=== PATIENT | female | born 1975 | race Caucasian/White ===

== ENCOUNTER 2024-06-06 07:01 | Day surgery (SDC) | payer OTHER ==
[2024-06-06] MEDS: LACTATED RINGERS 1,000 ML IV ONE ×2 (07:13→09:10)
--- NOTE | 2024-06-06 08:09 | ANESTHESIA ---
Pre-Anesthesia VS, & Labs - Diagnosis screening - Procedure colonoscopy Vital Signs: Temp Pulse Resp BP Pulse Ox O2 Flow Rate 36.1 C L 68 12 133/71 H 98 06/06/24 07:17 06/06/24 07:17 06/06/24 07:17 06/06/24 07:17 06/06/24 07:17 Height: 24 in Weight (kg): 71.2 kg Body Mass Index: 191.6 BMI Classification: Morbidly Obese - NPO >8 hours - Is Patient ?: No - Lab Results Current Lab Results: Laboratory Tests 06/06/24 07:41: POC Whole Bld Glucose 132 H Home Medications and Allergies Home Medications: Ambulatory Orders metFORMIN [Glucophage] 500 mg ORAL DAILY 06/06/24 metFORMIN [Glucophage] 500 mg ORAL DAILY 06/06/24 Allergies/Adverse Reactions: Allergies Allergy/AdvReac Type Severity Reaction Status Date / Time No Known Drug Allergies Allergy Verified 06/06/24 07:48 Anes History & Medical History - Anesthetic History Anesthesia Complications: reports: No previous complications - Medical History Cardiovascular: reports: None Pulmonary: reports: None Gastrointestinal: reports: None Urinary: reports: None Musculoskeletal: reports: None Endocrine/Autoimmune: reports: None, Type 2 diabetes Skin: reports: None Smoking Status: Never smoker - Surgical History General: reports: Cholecystectomy Gynecologic: reports: section Exam General: Alert, Oriented x3 Dental: WNL Mouth Opening: Greater than 4 Fingerbreadths Neck Mobility: Normal Mallampati classification: II Thyromental Distance: greater than 6 cm Respiratory: Lungs clear Cardiovascular: Regular rate Plan Anesthesia Type: Total IV Consent for Procedure(s) Verified and Reviewed: Yes Code Status: Attempt Resuscitation ASA classification: 2-Mild systemic disease Is this case an emergency?: No
[2024-06-06] MEDS ORDERED: PROPOFOL 500 MG/50 ML 500 MG/50 ML VIAL ONE (08:18)
[2024-06-06] MEDS ORDERED: LIDOCAINE-MPF 2% 5 ML VIAL ONE (08:33)
[2024-06-06 09:36] VITALS: O2SAT 100
[2024-06-06 10:09] VITALS: BP 136/82
--- NOTE | 2024-06-06 13:47 | ANESTHESIA POST OP EVALUATION ---
Anesthesia Post Eval - Post Anesthesia Eval Vitals: Last Vital Signs Temp 36.4 C L 06/06/24 10:00 Pulse 63 06/06/24 10:00 Resp 14 06/06/24 10:00 BP 136/82 H 06/06/24 10:00 Pulse Ox 100 06/06/24 10:00 O2 Flow Rate CV Function Including HR & BP: Stable Pain Control: Satisfactory Nausea & Vomiting: Negative Mental Status: Baseline Respiratory Status: Airway Patent Hydration Status: Satisfactory Anesthesia Complications: None
== END 2024-06-06 07:02 | disposition home or self-care (01) ==
LOC: SDS 07:01
PROVIDERS: ATTEND Surgery
PROC: 0DBL8ZX Excision of Transverse Colon, Via Natural or Artificial Opening Endoscopic, Diagnostic (ICD-10-PCS; principal; 2024-06-06 08:30)
DX: Z12.11 Encounter for screening for malignant neoplasm of colon (principal); K63.5 Polyp of colon; K64.4 Residual hemorrhoidal skin tags; E11.9 Type 2 diabetes mellitus without complications; Z79.84 Long term (current) use of oral hypoglycemic drugs
CPT/HCPCS: 45380; J7120; 81025